=== PATIENT | female | born 1990 | race Two or more races ===

== ENCOUNTER 2019-12-31 19:41 | Inpatient (IN) | payer MEDICAID ==
[~2019-12-31] VITALS: Ht 165.1 cm; Wt 75.8 kg
[2019-12-31] MEDS ORDERED: SODIUM CHLORIDE 0.9% 1,000 ML IV ONE (20:22)
[2019-12-31] MEDS ORDERED: ONDANSETRON HCL 4MG/2ML INJ IV STA (21:40)
[2019-12-31] MEDS ORDERED: MORPHINE SULFATE 4 MG/ML CPJ (NOT FOR IM USE) IV STA (21:40)
[2019-12-31] MEDS ORDERED: CEFEPIME HCL 2000MG/VIAL INJ IV ONE (22:00)
[2019-12-31] MEDS ORDERED: VANCOMYCIN 1 G PREMIX 200 ML IV ONE (22:00)
[2019-12-31] MEDS ORDERED: SODIUM CHLORIDE 0.9% 1000ML BAG (SEPSIS BOLUS) IV ONE (22:00)
[2019-12-31 23:33] LABS: CHLORIDE 124 mEq/L (98-107)
[2019-12-31 23:35] LABS: PROTHROMBIN TIME 10.9 sec (9.6-11.0)
[2019-12-31 23:43] LABS: BETA HYDROXYBUTYRATE 1.1 mMol/L (0.0-0.3)
[2020-01-01] MEDS ORDERED: CALCIUM GLUCONATE 100MG/ML 10ML VIAL IV NR
[2020-01-01] MEDS ORDERED: POTASSIUM CHLORIDE 20MEQ TABLET SR PO NR
[2020-01-01 00:26] LABS: BASOPHILS % 0.9 % (0.0-2.0); EOSINOPHILS % 1.5 % (0.0-5.0); HEMOGLOBIN. 12.3 g/dL (12.0-16.0); LYMPHOCYTES % 28.6 % (20.0-50.0); MEAN CORPUSCULAR HEMOGLOBIN 28.9 pg (28.0-32.0); MEAN CORPUSCULAR VOLUME 86.7 fL (81.0-99.0); MEAN PLATELET VOLUME 7.3 fl (7.4-10.4); PLATELET 488 x1000/uL (130-400); RED BLOOD CELL COUNT 4.26 mill/uL (4.2-5.4); RED CELL DISTRIBUTION WIDTH 14.9 % (11.6-14.6)
[2020-01-01] MEDS ORDERED: DIPHENHYDRAMINE 50MG/ML VIAL IV ONE (00:45)
[2020-01-01] MEDS ORDERED: CEFEPIME 2,000 MG in DEXT 5% WATER 100 ML IV NR (01:15)
[2020-01-01] MEDS ORDERED: MORPHINE SULFATE 2 MG/ML CPJ (NOT FOR IM USE) IV ONE (03:30)
[2020-01-01] MEDS ORDERED: MAGNESIUM/ALUMINUM HYDROXIDE/SIMETHICONE 30ML UDC PO PRN (05:00)
[2020-01-01] MEDS ORDERED: ACETAMINOPHEN 325MG TABLET PO PRN (05:00)
[2020-01-01] MEDS ORDERED: CLONIDINE 0.1MG TABLET PO PRN (05:00)
[2020-01-01] MEDS ORDERED: ONDANSETRON HCL 4MG/2ML INJ IV PRN (05:00)
[2020-01-01] MEDS ORDERED: DEXT 5%/0.45% NACL KCL 10MEQ/L 1,000 ML IV SCH (05:30)
[2020-01-01] MEDS ORDERED: KCL 10MEQ/50ML PREMIX 50 ML IV NR (05:30)
[2020-01-01] MEDS ORDERED: MAGNESIUM 2 G PREMIX 50 ML IV NR (06:00)
[2020-01-01 06:25] LABS: CHLORIDE 96 mEq/L (98-107)
[2020-01-01] MEDS ORDERED: POTASSIUM CHLORIDE INJ 40 MEQ in DEXT 5% WATER 250 ML IV NR (07:00)
[2020-01-01 08:09] LABS: CLARITY URINE CLOUDY (CLEAR); COLOR URINE ORANGE (YELLOW); KETONES URINE 2+ (NEGATIVE); LEUKOCYTE ESTERASE URINE TRACE (NEGATIVE); NITRITE URINE NEGATIVE (NEGATIVE); OCCULT BLOOD URINE 3+ (NEGATIVE); PH URINE 7.5 (4.5-8.0); PROTEIN URINE 2+ (NEGATIVE); SPECIFIC GRAVITY URINE 1.029 (1.005-1.030); UROBILINOGEN URINE 0.2 E.U./dL (0.2-1.0)
[2020-01-01 08:20] VITALS: BP 119/83
[2020-01-01 08:32] VITALS: BP 119/83
[2020-01-01] MEDS ORDERED: INS7030 SUBCUT (08:45)
[2020-01-01] MEDS ORDERED: INSLIS SUBCUT (08:45)
[2020-01-01] MEDS ORDERED: DEXTROSE 50% WATER 50ML SYRINGE IV PRN (09:00)
[2020-01-01] MEDS: HYDROMORPHONE HCL/PF 2MG/ML CPJ IV PRN ×2 (09:02→20:22)
[2020-01-01] MEDS: DIPHENHYDRAMINE 50MG/ML VIAL IV PRN ×2 (10:52→21:02)
[2020-01-01] MEDS: BLOOD SUGAR DIAGNOSTIC STRIP TEST SCH ×3 (11:50→20:22)
[2020-01-01 12:00] VITALS: BP 124/83
[2020-01-01] MEDS: DEXT 5%/0.45% NACL KCL 10MEQ/L 1,000 ML IV SCH (12:23)
[2020-01-01] MEDS: METOCLOPRAMIDE HCL 10MG/2ML VIAL IV SCH ×2 (12:23→18:03)
[2020-01-01] MEDS: INSULIN LISPRO 100 UNITS/ML SUBCUT SCH ×3 (12:24→21:03)
[2020-01-01] MEDS ORDERED: INSULIN GLARGINE UD 100 UNITS/ML SYR SUBCUT NR (14:00)
[2020-01-01 16:00] VITALS: BP 108/75
[2020-01-01 20:42] VITALS: BP 96/62
[2020-01-01] MEDS ORDERED: INSULIN GLARGINE UD 100 UNITS/ML SYR SUBCUT SCH ×2 (22:00)
[2020-01-02] VITALS: BP 119/78
[2020-01-02] MEDS: DEXT 5%/0.45% NACL KCL 10MEQ/L 1,000 ML IV SCH (00:20)
[2020-01-02] MEDS: METOCLOPRAMIDE HCL 10MG/2ML VIAL IV SCH ×2 (01:23→05:32)
[2020-01-02 01:27] VITALS: BP 119/78
[2020-01-02 04:00] VITALS: BP 119/77
[2020-01-02] MEDS: BLOOD SUGAR DIAGNOSTIC STRIP TEST SCH (05:32)
[2020-01-02] MEDS: INSULIN LISPRO 100 UNITS/ML SUBCUT SCH (06:20)
[2020-01-02 08:00] VITALS: BP 99/57
[2020-01-02] MEDS ORDERED: INSULIN GLARGINE UD 100 UNITS/ML SYR SUBCUT SCH (10:00)
== END 2020-01-02 10:16 | disposition left against medical advice (07) | DRG 48 ==
LOC: ER 19:41 → 6WST 01-01 01:39 → EDBD 01-01 01:39 → EDBEDREQ 01-01 01:41 → EDBEDREQTM 01-01 01:41 → EDBEDREQDT 01-01 01:41 → EDBEDREQSVC 01-01 01:41 → ENRESERV 01-01 07:26
PROVIDERS: ADMIT Hospitalist; ATTEND Hospitalist
DX: E10.43 Type 1 diabetes mellitus with diabetic autonomic (poly)neuropathy (principal); E11.65 Type 2 diabetes mellitus with hyperglycemia; E83.42 Hypomagnesemia; E83.51 Hypocalcemia; E87.6 Hypokalemia; K31.84 Gastroparesis; Z79.4 Long term (current) use of insulin; Z91.14 Patient's other noncompliance with medication regimen; Z88.0 Allergy status to penicillin; Z79.899 Other long term (current) drug therapy
CPT/HCPCS: 36415; 71045; 80048; 80053; 81003; 82010; 82330; 82962; 83036; 83605; 83735; 84145; 84484; 85025; 93970; 99291; J0610; J0692; J1170; J1200; J1815; J2270; J2405; J2765; J3370; J3475; J3480; J7030; J7060

== ENCOUNTER 2023-07-12 12:33 | Inpatient (IN) | payer MEDICAID ==
[~2023-07-12] VITALS: Ht 165.1 cm; Wt 90.7 kg
[~2023-07-12 12:33] MED LIST: INS7030 SUBCUT; INSLIS SUBCUT
[2023-07-12 12:41] VITALS: O2SAT 100
[2023-07-12] MEDS ORDERED: ONDANSETRON HCL 4MG/2ML INJ IV STA (13:09)
[2023-07-12] MEDS ORDERED: MORPHINE SULFATE 10 MG/ML CPJ IM ONE (14:00)
[2023-07-12] MEDS: MORPHINE SULFATE 10 MG/ML CPJ IM NR (15:51)
[2023-07-12] MEDS: ONDANSETRON HCL 4MG/2ML INJ IV NR (15:51)
[2023-07-12 16:07] LABS: BASOPHILS % 0.4 % (0.0-2.0); EOSINOPHILS % 1.3 % (0.0-5.0); HEMOGLOBIN. 7.7 g/dL (12.0-16.0); LYMPHOCYTES % 14.9 % (20.0-50.0); MEAN CORPUSCULAR HEMOGLOBIN 28.3 pg (28.0-32.0); MEAN CORPUSCULAR HGB CONC 33.3 g/dL (31.0-37.0); MEAN CORPUSCULAR VOLUME 84.9 fL (81.0-99.0); MEAN PLATELET VOLUME 6.9 fl (7.4-10.4); MONOCYTES % 3.1 % (2.0-8.0); NEUTROPHILS % 80.3 % (40.0-76.0); PLATELET 245 x1000/uL (130-400); RED BLOOD CELL COUNT 2.71 mill/uL (4.2-5.4); RED CELL DISTRIBUTION WIDTH 14.8 % (11.6-14.6); WHITE BLOOD COUNT 11.2 x1000/uL (4.5-11.0)
[2023-07-12] MEDS: DIPHENHYDRAMINE 50MG/ML VIAL IV ONE (16:15)
[2023-07-12 16:19] LABS: ALANINE AMINOTRANSFERASE 9 IU/L (10-49); ALBUMIN 3.3 g/dL (3.2-4.8); ASPARTATE AMINOTRANSFERASE 15 IU/L (<34); B-HCG QUANTITATIVE 70388 mIU/mL (<3); BILIRUBIN TOTAL 0.5 mg/dL (0.1-1.0); CALCIUM 8.6 mg/dL (8.7-10.4); CARBON DIOXIDE 27 mEq/L (21-32); CHLORIDE 98 mEq/L (98-107); GLUCOSE 97 mg/dL (70-105); POTASSIUM 4.4 mEq/L (3.5-5.1); PROTEIN TOTAL 6.2 g/dL (6.0-8.3); SODIUM 134 mEq/L (136-145); TROPONIN I HIGH SENSITIVITY 10 ng/L (3.0-34); UREA NITROGEN BLOOD 45 mg/dL (9-23)
[2023-07-12 16:26] LABS: CREATININE 9.9 mg/dL (0.6-1.0); ETHANOL BLOOD < 10 mg/dL (<10)
[2023-07-12 18:30] VITALS: BP 190/114; PULSE 96; RESP 18; TEMP 98.2
[2023-07-12 18:54] VITALS: BP 192/114; PULSE 96; RESP 18; TEMP 98.2
[2023-07-12 20:00] VITALS: BP 185/112; PULSE 96; RESP 18; TEMP 98.2
[2023-07-12] MEDS: SODIUM CHLORIDE 0.9% 1,000 ML IV SCH (22:15)
[2023-07-12] MEDS ORDERED: ACETAMINOPHEN 325MG TABLET PO PRN ×2 (22:15)
[2023-07-12] MEDS: ONDANSETRON HCL 4MG/2ML INJ IV PRN (22:40)
[2023-07-12] MEDS: LORATADINE 10MG TABLET PO SCH (23:00)
[2023-07-12] MEDS: DIPHENHYDRAMINE 50MG/ML VIAL IV NR (23:50)
[2023-07-13] VITALS (15 sets, daily range): BP systolic 125–190; BP diastolic 72–110; PULSE 90–95; RESP 16–20; TEMP 96.8–98.3
[2023-07-13] MEDS: HYDROMORPHONE HCL/PF 2MG/ML CPJ IV NR (00:18)
[2023-07-13] MEDS: CLONIDINE 0.1MG TABLET PO PRN (02:37)
[2023-07-13] MEDS ORDERED: INSU100I28 SQ (02:54)
[2023-07-13] MEDS ORDERED: ARIP10TA56 PO (07:26)
[2023-07-13] MEDS ORDERED: INSU100I13 SUBCUT (07:26)
[2023-07-13] MEDS ORDERED: AMLO10TA80 PO (07:26)
[2023-07-13] MEDS ORDERED: LABE100T8 PO (07:26)
[2023-07-13] MEDS ORDERED: LABE100T9 PO (07:26)
[2023-07-13] MEDS ORDERED: HYDRALAZINE 20MG/ML VIAL IV PRN (07:30)
[2023-07-13] MEDS ORDERED: DEXTROSE 50% WATER 50ML SYRINGE IV PRN (07:30)
[2023-07-13] MEDS: INSULIN LISPRO 100 UNITS/ML SUBCUT SCH (07:40)
[2023-07-13] MEDS: BLOOD SUGAR DIAGNOSTIC STRIP TEST SCH (08:00)
[2023-07-13] MEDS: PANTOPRAZOLE SODIUM 40 MG/VIAL IV SCH (08:20)
[2023-07-13] MEDS ORDERED: NIFEDIPINE XL 60MG TAB PO SCH (09:00)
[2023-07-13] MEDS ORDERED: ACETAMINOPHEN 325MG TABLET PO PRN (09:00)
[2023-07-13] MEDS: CETIRIZINE 10MG TABLET PO SCH (09:00)
[2023-07-13] MEDS: AMLODIPINE 10MG TABLET PO SCH (09:46)
[2023-07-13] MEDS: LABETALOL HCL 100MG TABLET PO SCH (09:47)
[2023-07-13] MEDS: DIPHENHYDRAMINE 50MG/ML VIAL IV PRN (09:47)
[2023-07-13] MEDS: THIAMINE HCL 100 MG in SODIUM CHLORIDE 0.9% 49 ML IV NR (10:39)
[2023-07-13] MEDS ORDERED: NALOXONE HCL 0.4MG/ML VIAL IV PRN (17:00)
[2023-07-13] MEDS: MORPHINE SULFATE 2 MG/ML CPJ (NOT FOR IM USE) IV PRN (17:51)
[2023-07-13 19:31] LABS: CLARITY URINE CLEAR (CLEAR); COLOR URINE YELLOW (YELLOW); GLUCOSE URINE 1+ (NEGATIVE); KETONES URINE 1+ (NEGATIVE); LEUKOCYTE ESTERASE URINE NEGATIVE (NEGATIVE); NITRITE URINE NEGATIVE (NEGATIVE); OCCULT BLOOD URINE TRACE (NEGATIVE); PH URINE 8.5 (4.5-8.0); PROTEIN URINE 4+ (NEGATIVE); SPECIFIC GRAVITY URINE 1.014 (1.005-1.030); UROBILINOGEN URINE 0.2 E.U./dL (0.2-1.0)
[2023-07-13 19:53] LABS: BACTERIA URINE NONE SEEN; SQUAMOUS EPITHELIAL CELL URINE RARE /lpf (RARE/1+); WBC URINE 0-2 /hpf (0-2)
[2023-07-13] MEDS: INSULIN GLARGINE 100 UNITS/ML SUBCUT SCH (22:40)
[2023-07-14] VITALS (14 sets, daily range): BP systolic 110–163; BP diastolic 66–97; PULSE 88–102; RESP 18–24; TEMP 97.2–98.6
[2023-07-14] MEDS: EPOETIN ALFA 4000UNITS/ML VIAL SUBCUT SCH (00:41)
[2023-07-14 05:44] LABS: HEPATITIS A AB IGM NEGATIVE (Negative); HEPATITIS B CORE AB IGM NEGATIVE (Negative); HEPATITIS B SURFACE ANTIGEN NEGATIVE (Negative); HEPATITIS C AB NON REACTIVE (Neg) (Negative)
[2023-07-14] MEDS: TRAMADOL 50MG TABLET PO PRN (08:17)
[2023-07-14] MEDS ORDERED: ONDA4TAB50 MT (14:54)
[2023-07-14] MEDS ORDERED: LABE100T9 PO (14:54)
[2023-07-14] MEDS ORDERED: AMLO10TA80 PO (14:54)
[2023-07-14] MEDS ORDERED: DEXTROSE 50% WATER 50ML SYRINGE IV PRN (17:00)
[2023-07-14 17:21] LABS: CALCIUM 7.6 mg/dL (8.7-10.4); POTASSIUM 4.5 mEq/L (3.5-5.1)
[2023-07-14 17:22] LABS: CREATININE 5.6 mg/dL (0.6-1.0)
[2023-07-14] MEDS: DIPHENHYDRAMINE 50MG/ML VIAL IV NR (18:29)
== END 2023-07-14 19:10 | disposition home or self-care (01) | DRG 566 ==
LOC: ER 12:33 → EDBEDREQ 14:48 → 8WST 17:03 → EDBEDREQ 17:06 → EDBEDREQTM 17:06
PROVIDERS: ADMIT Preventive Medicine Clinical Informatics; ATTEND Preventive Medicine Clinical Informatics
PROC: 5A1D70Z Performance of Urinary Filtration, Intermittent, Less than 6 Hours Per Day (ICD-10-PCS; principal; 2023-07-13)
PROC: 5A1D70Z Performance of Urinary Filtration, Intermittent, Less than 6 Hours Per Day (ICD-10-PCS; 2023-07-14)
DX: O99.612 Diseases of the digestive system complicating pregnancy, second trimester (principal); K52.9 Noninfective gastroenteritis and colitis, unspecified; O99.012 Anemia complicating pregnancy, second trimester; O10.212 Pre-existing hypertensive chronic kidney disease complicating pregnancy, second trimester; H26.9 Unspecified cataract; O24.912 Unspecified diabetes mellitus in pregnancy, second trimester; Z79.4 Long term (current) use of insulin; Z79.899 Other long term (current) drug therapy; Z88.0 Allergy status to penicillin; Z99.2 Dependence on renal dialysis; Z3A.15 15 weeks gestation of pregnancy
CPT/HCPCS: 36415; 71045; 76805; 80048; 80053; 80320; 81003; 82962; 84484; 84702; 85025; 86705; 86709; 86850; 86900; 87340; 90935; 93005; 99285; C1893; C9113; J0885; J1170; J1200; J1815; J2270; J2405; J3411; J7030; G0480